=== PATIENT | female | born 1945 | race African-American/Black ===

== ENCOUNTER 2016-11-30 10:32 | Emergency (ER) | payer MEDICARE, OTHER ==
[2016-11-30 10:29] LABS: INFLUENZA A SCREEN NEGATIVE (NEGATIVE); INFLUENZA B SCREEN NEGATIVE (NEGATIVE)
[~2016-11-30 10:32] MED LIST: CARDCD240 PO; CAT3 PO; HEMOCYTE324 MG PO; KAPIDEX60 MG PO; KLOR-CON 1010 MEQ PO; L10 PO; LIBRAX PO; LINZESS PO; METPAKSF PO; P125 PO; PAX20 PO; PREV30 PO; TRANXENE T OR; ULTRACET PO; VOLT50 PO; ZYRTEC ALLGY10 MG PO
== END 2016-11-30 11:35 | disposition home or self-care (01) ==
LOC: ER 10:32
PROVIDERS: Emergency Medicine
DX: J40 Bronchitis, not specified as acute or chronic (principal); Z88.5 Allergy status to narcotic agent; Z88.6 Allergy status to analgesic agent; Z88.2 Allergy status to sulfonamides; Z88.8 Allergy status to other drugs, medicaments and biological substances; Z79.899 Other long term (current) drug therapy
CPT/HCPCS: 71020; 82962; 87804; 93005; 99284; A9270-GY